=== PATIENT | female | born 1985 | race Caucasian/White ===

== ENCOUNTER 2017-03-26 20:07 | Emergency (ER) | payer BC, OTHER ==
[2017-03-26 20:59] VITALS: TEMP 98.3; O2SAT 98
--- NOTE | 2017-03-26 21:20 | C.PDOC ---
History Of Present Illness Patient is a 31 y/o female that presents to the ED for evaluation of back pain associated with nausea and vomiting since last night. Patient was seen at urgent care center 2 days ago, was diagnosed with UTI, and started on antibiotics. Patient presents today with sharp stabbing flank pain (right more than left) that radiates down to groin. Otherwise, denies fever, dyruria, hematuria, or any other associated symptoms at this time. Time Seen by Provider: 03/26/17 21:20 Chief Complaint (Nursing): Back Pain History Per: Patient History/Exam Limitations: no limitations Onset/Duration Of Symptoms: Days (2) Current Symptoms Are (Timing): Still Present Quality Of Discomfort: Sharp, Stabbing Severity: Moderate Pain Scale Rating Of: 5 Previous Symptoms: None Associated Symptoms: None. denies: Incontinence, New Weakness, New Numbness Exacerbating Factor(s): Nothing Recent travel outside of the [place]: No Additional History Per: Patient Past Medical History Reviewed: Historical Data, Nursing Documentation, Vital Signs Vital Signs: Last Vital Signs Temp 98.3 F 03/26/17 20:55 Pulse 84 03/26/17 20:55 Resp 16 03/26/17 20:55 BP 115/75 03/26/17 20:55 Pulse Ox 98 03/26/17 22:57 - Medical History PMH: Asthma Family History: States: No Known Family Hx - Social History Hx Tobacco Use: Yes Hx Alcohol Use: Yes Hx Substance Use: No - Immunization History Hx Tetanus Toxoid Vaccination: No Hx Influenza Vaccination: No Hx Pneumococcal Vaccination: No Review Of Systems Constitutional: Negative for: Fever, Chills ENT: Negative for: Throat Pain Cardiovascular: Negative for: Chest Pain Respiratory: Negative for: Shortness of Breath Gastrointestinal: Positive for: Nausea, Vomiting, Other (r flank pain). Negative for: Diarrhea, Constipation Genitourinary: Negative for: Dysuria, Frequency, Incontinence, Hematuria Musculoskeletal: Positive for: Back Pain Skin: Negative for: Rash, Lesions, Jaundice, Bruising Neurological: Negative for: Weakness, Numbness Psych: Positive for: Anxiety Physical Exam - Physical Exam Appears: Non-toxic Skin: Warm, Dry Head: Normacephalic Eye(s): bilateral: Normal Inspection Oral Mucosa: Moist Neck: Supple Chest: Symmetrical Cardiovascular: Rhythm Regular Respiratory: No Rales, No Rhonchi, No Wheezing Gastrointestinal/Abdominal: Soft, Tenderness (r flank) Back: CVA Tenderness (right) Extremity: Normal ROM Extremity: Bilateral: Atraumatic, Normal Color And Temperature, Normal ROM Neurological/Psych: Oriented x3, Normal Speech, Normal Cognition Gait: Steady ED Course And Treatment - Laboratory Results Result Diagrams: 03/26/17 21:43 03/26/17 21:43 O2 Sat by Pulse Oximetry: 98 (on RA) Pulse Ox Interpretation: Normal - CT Scan/US CT abd/pel w/o contrast Other Rad Studies (CT/US): Read By Radiologist, Radiology Report Reviewed CT/US Interpretation: IMPRESSION: Rule out constipation, no signs of bowel obstruction. No obstructive uropathy. Appendix appears within normal limits. Progress Note: Labs ordered and reviewed. Patient was given IV fluids, Morphine , Pepcid, and Zofran. Reevaluation Time: 23:12 Reassessment Condition: Improved Medical Decision Making Medical Decision Making: Upon provider reevaluation patient is feeling better, is medically stable, and requires no further treatment in the ED at this time. Patient will be discharged home with Rx for miralax and toradol . Counseling was provided and all questions were answered regarding diagnosis and need for follow up with the referred clinic. There is agreement to discharge plan. Return if symptoms persist or worsen. Disposition Counseled Patient/Family Regarding: Studies Performed, Diagnosis, Need For Followup - Disposition Referrals: [facility] [Outside] [facility] [Outside] Disposition: HOME/ ROUTINE Disposition Time: 21:20 Condition: FAIR Additional Instructions: Please return if symptoms recur. Prescriptions: Ketorolac Tromethamine [Toradol] 10 mg PO TID #15 tab Polyethylene Glycol 3350 [Miralax] 17 gm PO DAILY #270 ml Instructions: Abdominal Pain (ED), Gas and Bloating (ED), Constipation (DC) - Clinical Impression Clinical Impression: Constipation, Abdominal pain, UTI (urinary tract infection) - Scribe Statement The provider has reviewed the documentation as recorded by the Rebecca Silva Provider Attestation: All medical record entries made by the Bitaibaliyah were at my direction and personally dictated by me. I have reviewed the chart and agree that the record accurately reflects my personal performance of the history, physical exam, medical decision making, and the department course for this patient. I have also personally directed, reviewed, and agree with the discharge instructions and disposition.
[2017-03-26] MEDS ORDERED: Morphine 4 MG/ML VIAL ONE (21:22)
[2017-03-26] MEDS ORDERED: Sodium Chloride 0.9% 1,000 ML IV ONE (21:25)
[2017-03-26 21:50] LABS: BASO # 0.2 K/uL (0.0-0.2); BASO % 1.3 % (0.0-2.0); EOS # 0.5 K/uL (0.0-0.7); EOS % 3.9 % (0.0-4.0); HEMATOCRIT 39.3 % (34.0-47.0); LYMPH # 3.3 K/uL (1.0-4.3); LYMPH % 25.9 % (20.0-40.0); MEAN CELL VOLUME 85.1 fL (81.0-99.0); MEAN CORPUSCULAR HGB CONC 32.8 g/dL (33.0-37.0); MEAN PLATELET VOLUME 8.6 fL (7.2-11.7); MONO % 7.8 % (0.0-10.0); RED CELL DISTRIBUTION WIDTH 13.4 % (11.5-14.5); WHITE BLOOD COUNT 12.7 K/uL (4.8-10.8)
[2017-03-26 21:54] LABS: CHLORIDE 99 mmol/L (98-107); SODIUM 140 mmol/L (132-148)
[2017-03-26 21:55] LABS: RBC URINE 10 /hpf (0-3); URINE BACTERIA OCC (<OCC); URINE BILIRUBIN NEGATIVE (NEGATIVE); URINE BLOOD TRACE (NEGATIVE); URINE COLOR Yellow (YELLOW); URINE GLUCOSE (UA) NORMAL (Normal); URINE KETONE NEGATIVE (NEGATIVE); URINE PROTEIN NEGATIVE (NEGATIVE); URINE UROBILINOGEN NORMAL mg/dL (0.2-1.0); WBC URINE 17 /hpf (0-5)
[2017-03-26 21:55] LABS: POTASSIUM 3.8 mmol/L (3.6-5.2)
[2017-03-26 21:56] LABS: URINE LEUKOCYTE ESTERASE 1+ Leu/uL (Negative)
[2017-03-26 21:57] LABS: ALB/GLOB RATIO 1.3 (1.0-2.1); ALKALINE PHOSPHATASE 84 U/L (38-126); ALT/SGPT 37 U/L (9-52); AST/SGOT 22 U/L (14-36); BILIRUBIN,TOTAL 0.5 mg/dL (0.2-1.3); BLOOD UREA NITROGEN 13 mg/dL (7-17); CALCIUM 9.6 mg/dl (8.6-10.4); CARBON DIOXIDE 28 mmol/L (22-30); GFR AFRICAN-AMERICAN > 60; GLUCOSE,RANDOM 80 mg/dL (65-105); TOTAL PROTEIN 7.8 g/dL (6.3-8.3)
[2017-03-26] MEDS ORDERED: Piperacillin/Tazobact 3.375 gm 100 ML IVPB STA (21:58)
[2017-03-26] MEDS ORDERED: Piperacillin/Tazobact 3.375 gm 100 ML IVPB ONE (22:10)
[2017-03-26 23:46] VITALS: BP 145/78; PULSE 86; RESP 18
--- NOTE | 2017-03-27 08:04 | CT ---
PROCEDURE: CT Abdomen and Pelvis without intravenous contrast HISTORY: r flank, back pain COMPARISON: None. TECHNIQUE: Axial and reformatted coronal and sagittal CT images of the abdomen and pelvis were obtained without IV or oral contrast administration.. Contrast Dose: 0 Radiation dose: Total exam DLP = 1070.42 mGy-cm. This CT exam was performed using one or more of the following dose reduction techniques: Automated exposure control, adjustment of the mA and/or kV according to patient size, and/or use of iterative reconstruction technique. FINDINGS: LOWER THORAX: Unremarkable. LIVER: Unremarkable. No gross lesion or ductal dilatation. GALLBLADDER AND BILE DUCTS: Unremarkable. PANCREAS: Unremarkable. No gross lesion or ductal dilatation. SPLEEN: Unremarkable. ADRENALS: Unremarkable. No mass. KIDNEYS AND URETERS: Slightly dilated right kidney collecting system without evidence of obstructing stone. The left kidney is grossly unremarkable. VASCULATURE: Unremarkable. No aortic aneurysm. BOWEL: Mild constipation is noted. No evidence of bowel obstruction. APPENDIX: Unremarkable. Normal appendix. PERITONEUM: Unremarkable. No free fluid. No free air. LYMPH NODES: Prominent retroperitoneal and mesenteric lymph nodes are noted. BLADDER: Unremarkable. REPRODUCTIVE: Unremarkable. BONES: No acute fracture. OTHER FINDINGS: None. IMPRESSION: No evidence of nephrolithiasis or significant hydronephrosis. Mildly dilated right kidney collecting system. Mild constipation. Prominent lymph nodes seen in the abdomen and upper pelvis. Preliminary report was submitted by [facility].
== END 2017-03-26 23:45 | disposition home or self-care (01) ==
LOC: C.ER 20:07
DX: K59.00 Constipation, unspecified (principal); N39.0 Urinary tract infection, site not specified; R10.31 Right lower quadrant pain
CPT/HCPCS: 74176; 80053; 81001; 83690; 84703; 85025; 96361; 96365; 96375; 99283; J1885; J2270; J2543; J7040